=== PATIENT | male | born 1965 | race Caucasian/White ===

== ENCOUNTER 2018-05-15 16:39 | Emergency (ER) | payer SELFPAY ==
[2018-05-15] MEDS: IBUPROFEN 600 MG TAB PO (18:10)
== END 2018-05-15 18:41 | disposition home or self-care (01) ==
LOC: FTE 16:39
DX: S00.83XA Contusion of other part of head, initial encounter (principal); I10 Essential (primary) hypertension; E11.9 Type 2 diabetes mellitus without complications; W22.8XXA Striking against or struck by other objects, initial encounter; Y92.89 Other specified places as the place of occurrence of the external cause
CPT/HCPCS: 99283